=== PATIENT | female | born 1985 | race African-American/Black ===

== ENCOUNTER 2020-06-15 14:04 | Emergency (ER) | payer SELFPAY ==
[2020-06-15 22:33] LABS: SARS-CoV-2 MS2 Positive; SARS-CoV-2 N Gene Negative; SARS-CoV-2 S Gene Negative; SARS-CoV-2 by NAA Not Detected (NotDetected); SARS-CoV-2 orf1ab Negative
== END 2020-06-15 15:06 | disposition home or self-care (01) ==
LOC: ERS 14:04
DX: I10 Essential (primary) hypertension (principal); Z20.828 Contact with and (suspected) exposure to other viral communicable diseases
CPT/HCPCS: 87635; 99283; U0003